=== PATIENT | female | born 1990 | race Caucasian/White ===

== ENCOUNTER 2018-11-18 23:04 | Emergency (ER) | payer MEDICAID ==
[~2018-11-18] VITALS: Ht 175.3 cm; Wt 102.1 kg
[2018-11-18 23:09] VITALS: BP 128/73; Ht 175.3 cm; Wt 102.1 kg
== END 2018-11-19 01:07 | disposition home or self-care (01) ==
LOC: ED 23:04
DX: O26.892 Other specified pregnancy related conditions, second trimester (principal); R10.9 Unspecified abdominal pain; Z3A.21 21 weeks gestation of pregnancy
CPT/HCPCS: Q0092